=== PATIENT | female | born 1935 | race Caucasian/White ===

== ENCOUNTER → 2021-09-15 | Day surgery (SDC) | payer OTHER ==
--- NOTE | 2021-09-16 08:27 | RAD REPORT ---
EXAM DESCRIPTION: US - Breast Core BX w/US Guidance - 09/15/2021 10:44 am CLINICAL HISTORY: ICD R 92.8 COMPARISON: March 19, 2021 ultrasound TECHNIQUE: The risks, benefits alternatives to the procedure were explained to the patient and infor med consent obtained. Skin and subcutaneous tissues anesthetized with lidocaine. Under sonographic guidance, several 18 gauge core samples assisted core biopsies of the mass within t he left breast obtained at the 1 o'clock position. Tissue given to pathology. Subsequently a localizing clip was placed into the mass. Patient experienced no immediate complication IMPRESSION: Technically successful ultrasound-guided core biopsy of the suspicious mass in the left breast at the 1 o'clock position.
--- NOTE | 2021-09-16 08:28 | RAD REPORT ---
EXAM DESCRIPTION: US - Breast Core BX Addtnl - 09/15/2021 12:06 pm CLINICAL HISTORY: ICD R 92.8 COMPARISON: March 19, 2021 ultrasound TECHNIQUE: The risks, benefits alternatives to the procedure were explained to the patient and infor med consent obtained. Skin and subcutaneous tissues anesthetized with lidocaine. Under sonographic guidance, several 18 gauge core samples were obtained of the suspicious mass in the left breast at the 5 o'clock position . Tissue given to pathology. Subsequently a localizing clip was placed into the mass. Patient experienced no immediate complication IMPRESSION: Technically successful ultrasound-guided core biopsy of a solid lesion at the 5 o'clock position in the left breast .
== END ==
LOC: DS 09:34
PROVIDERS: ATTEND Internal Medicine Nephrology
DX: N63.20 Unspecified lump in the left breast, unspecified quadrant (principal)
CPT/HCPCS: 19083; 19084; 88305